=== PATIENT | male | born 1975 | race Caucasian/White ===

== ENCOUNTER 2017-08-22 12:40 | Inpatient (IN) | payer OTHER ==
[~2017-08-22] VITALS: Ht 180.3 cm; Wt 125.5 kg
[2017-08-22 13:26] LABS: BASOPHIL COUNT 0.1 K/uL (0-0.1); EOSINOPHIL (%) 0 % (0-5); HEMATOCRIT 50.4 % (38.0-50.0); IMMATURE GRANULOCYTE COUNT 0.2 K/uL; LYMPHOCYTE COUNT 1.2 K/uL (1.0-2.8); MCH 31.7 PG (29.0-34.0); MCHC 34.1 G/DL (30.0-36.0); MEAN PLAT.VOLUME 9.7 uM^3 (9.0-12.4); MONOCYTE COUNT 1.1 K/uL (0-0.8); NEUTROPHIL (%) 88.7 % (45-76); PLATELET COUNT 236 K/uL (156-360); RBC DIS.WIDTH-CV 13.9 % (11.8-14.6); RBC DIS.WIDTH-SD 47.4 % (39-53); RED BLOOD COUNT 5.42 M/uL (4.00-5.50); WHITE BLOOD COUNT 22.6 K/uL (4.1-10.2)
[2017-08-22 13:34] LABS: CHLORIDE 99 mEq/L (99-109); POTASSIUM 4.4 mEq/L (3.7-5.4); SODIUM 136 mEq/L (136-147)
[2017-08-22 13:36] LABS: GLUCOSE 118 mg/dL (70-99)
[2017-08-22 13:37] LABS: ANION GAP 12 MEQ/L (2-14)
[2017-08-22 13:38] LABS: TOTAL BILIRUBIN 0.9 mg/dL (0.0-1.0)
[2017-08-22 13:39] LABS: SERUM ETHYL ALCOHOL < 10 mg/dL
[2017-08-22 13:40] LABS: ALKALINE PHOSPHATASE 50 IU/L (3-129); GFR ESTIMATE (CALCULATED) > 59 mL/min/
[2017-08-22 13:41] LABS: UREA NITROGEN (BUN) 9 mg/dL (9-23)
[2017-08-22 16:09] LABS: ADD MIUA? NO; BILIRUBIN NEGATIVE; BLOOD NEGATIVE; COLOR STRAW ((YELLOW)); GLUCOSE (STRIP) NEGATIVE; KETONES NEGATIVE; LEUKOCYTES NEGATIVE; NITRITE NEGATIVE; PROTEIN (STRIP) NEGATIVE; SPECIFIC GRAVITY 1.008 (1.000-1.030); UCUL ADDED? NO; UROBILINOGEN 0.2 MG/DL (0.2-1.0)
[2017-08-22] MEDS ORDERED: LO-DOSE ASPIRIN81 M2 PO (19:27)
[2017-08-22 23:00] VITALS: BP 125/73
[2017-08-22 23:30] VITALS: BP 129/69
[2017-08-23] VITALS (7 sets, daily range): BP systolic 92–131; BP diastolic 54–88
[2017-08-23 08:41] LABS: MCH 32.7 PG (29.0-34.0); MCHC 34.4 G/DL (30.0-36.0); MCV 94.9 FL (86-99); MEAN PLAT.VOLUME 9.8 uM^3 (9.0-12.4); PLATELET COUNT 184 K/uL (156-360); RBC DIS.WIDTH-CV 14.6 % (11.8-14.6); RBC DIS.WIDTH-SD 50.5 % (39-53); RED BLOOD COUNT 4.53 M/uL (4.00-5.50); WHITE BLOOD COUNT 21.4 K/uL (4.1-10.2)
[2017-08-23 09:04] LABS: ALKALINE PHOSPHATASE 34 IU/L (3-129); ANION GAP 7 MEQ/L (2-14); CHLORIDE 104 MEQ/L (99-109); GFR ESTIMATE (CALCULATED) > 59 mL/min/; GLUCOSE 111 mg/dL (70-99); MAGNESIUM 1.1 mg/dl (1.3-2.7); POTASSIUM 3.7 MEQ/L (3.7-5.4); SAMPLE HEMOLYSIS CHECK 0; SAMPLE ICTERIC CHECK 0; SAMPLE LIPEMIA CHECK 0; SODIUM 139 MEQ/L (136-147); TOTAL BILIRUBIN 1.1 MG/DL (0.0-1.0); UREA NITROGEN (BUN) 7 mg/dL (9-23)
[2017-08-24 03:50] VITALS: BP 107/71
[2017-08-24 05:14] LABS: HEMATOCRIT 42.2 % (38.0-50.0); MCHC 33.2 G/DL (30.0-36.0); MCV 96.6 FL (86-99); MEAN PLAT.VOLUME 10.5 uM^3 (9.0-12.4); PLATELET COUNT 213 K/uL (156-360); RBC DIS.WIDTH-CV 14.2 % (11.8-14.6); RBC DIS.WIDTH-SD 51.3 % (39-53); RED BLOOD COUNT 4.37 M/uL (4.00-5.50); WHITE BLOOD COUNT 17.8 K/uL (4.1-10.2)
[2017-08-24 05:58] LABS: ANION GAP 8 MEQ/L (2-14); CHLORIDE 105 MEQ/L (99-109); GFR ESTIMATE (CALCULATED) > 59 mL/min/; POTASSIUM 3.7 MEQ/L (3.7-5.4); SAMPLE HEMOLYSIS CHECK 0; SAMPLE ICTERIC CHECK 0; SAMPLE LIPEMIA CHECK 0; SODIUM 140 MEQ/L (136-147); UREA NITROGEN (BUN) 6 mg/dL (9-23)
[2017-08-24 06:20] LABS: GLUCOSE 79 mg/dL (70-99); MAGNESIUM 1.9 mg/dl (1.3-2.7); VANCOMYCIN, TROUGH 8.7 MCG/ML (10-20)
[2017-08-24 07:32] VITALS: BP 102/61
[2017-08-24 11:28] VITALS: BP 115/75
[2017-08-24 14:39] VITALS: BP 120/82
[2017-08-24 17:23] VITALS: BP 134/93
[2017-08-24 19:25] VITALS: BP 130/89
[2017-08-25 00:10] VITALS: BP 120/73
[2017-08-25 04:23] VITALS: BP 129/93
[2017-08-25 05:46] LABS: HEMATOCRIT 40.3 % (38.0-50.0); MCH 31.4 PG (29.0-34.0); MEAN PLAT.VOLUME 9.7 uM^3 (9.0-12.4); PLATELET COUNT 211 K/uL (156-360); RBC DIS.WIDTH-CV 14.2 % (11.8-14.6); RBC DIS.WIDTH-SD 49.4 % (39-53); RED BLOOD COUNT 4.24 M/uL (4.00-5.50)
[2017-08-25 06:24] LABS: ANION GAP 8 MEQ/L (2-14); CHLORIDE 107 MEQ/L (99-109); GFR ESTIMATE (CALCULATED) > 59 mL/min/; GLUCOSE 88 mg/dL (70-99); SAMPLE HEMOLYSIS CHECK 0; SAMPLE ICTERIC CHECK 0; SAMPLE LIPEMIA CHECK 0; SODIUM 144 MEQ/L (136-147); UREA NITROGEN (BUN) 6 mg/dL (9-23)
[2017-08-25 07:24] VITALS: BP 115/78
[2017-08-25] MEDS ORDERED: FOLIC ACID1 MG PO (10:51)
[2017-08-25] MEDS ORDERED: THERAGRAN1 TABLET PO (10:51)
[2017-08-25] MEDS ORDERED: KEFLEX500 MG PO (10:55)
== END 2017-08-25 11:30 | disposition home or self-care (01) | DRG 872 ==
LOC: EME 12:40 → 4EAST 21:13 → EDOF 21:13 → ENRESERV 21:14 → 4EAST 22:46 → ENRESERV 08-24 09:18 → 5EAST 08-24 16:52 → ENPENDDIS 08-25 → 5EAST 08-25 11:30
PROVIDERS: Emergency Medicine; Hospitalist
DX: A41.9 Sepsis, unspecified organism (principal); L03.115 Cellulitis of right lower limb; E87.2 Acidosis; E83.42 Hypomagnesemia; E83.39 Other disorders of phosphorus metabolism; F17.200 Nicotine dependence, unspecified, uncomplicated; F10.239 Alcohol dependence with withdrawal, unspecified; R00.0 Tachycardia, unspecified; E66.9 Obesity, unspecified; I87.8 Other specified disorders of veins; R60.9 Edema, unspecified; Z68.37 Body mass index [BMI] 37.0-37.9, adult; Z82.5 Family history of asthma and other chronic lower respiratory diseases; Z79.82 Long term (current) use of aspirin; E86.0 Dehydration
CPT/HCPCS: 71010; 80048; 80053; 80069; 80202; 81003; 83605; 83735; 84100; 85025; 85027; 87040; 93005; 93971; 94799; 99281; 99285; C9113; G0480; J0690; J1650; J2060; J2270; J2405; J2543; J3370; J3475; J7030; J7050

== ENCOUNTER 2018-02-04 20:32 | Emergency (ER) | payer OTHER ==
[~2018-02-04] VITALS: Ht 180.3 cm; Wt 120.1 kg
[~2018-02-04 20:32] MED LIST: FOLIC ACID1 MG PO; KEFLEX500 MG PO; LO-DOSE ASPIRIN81 M2 PO; THERAGRAN1 TABLET PO
[2018-02-04 21:29] LABS: HEMATOCRIT 52.6 % (38.0-50.0); HEMOGLOBIN 18.2 G/DL (12.5-16.6); MCH 31.4 PG (29.0-34.0); MCHC 34.6 G/DL (30.0-36.0); MCV 90.7 FL (86-99); PLATELET COUNT 247 K/uL (156-360); RBC DIS.WIDTH-SD 46.7 % (39-53); WHITE BLOOD COUNT 13.1 K/uL (4.1-10.2)
[2018-02-04] MEDS ORDERED: CALAMINE LOTIO120 ML TP (21:53)
[2018-02-04 21:55] LABS: ALBUMIN 4.5 G/DL (3.2-4.8); ALKALINE PHOSPHATASE 39 IU/L (3-129); ALT (GPT) 23 IU/L (3-49); AST (GOT) 25 IU/L (2-34); CHLORIDE 102 MEQ/L (99-109); GFR ESTIMATE (CALCULATED) > 59 mL/min/ (58.99-99999); GLUCOSE 88 mg/dL (70-99); POTASSIUM 3.5 MEQ/L (3.7-5.4); SODIUM 138 MEQ/L (136-147); TOTAL BILIRUBIN 0.8 MG/DL (0.0-1.0); TOTAL PROTEIN 7.4 G/DL (6.4-8.3); UREA NITROGEN (BUN) 8 mg/dL (9-23)
[2018-02-04 22:18] VITALS: BP 158/101
== END 2018-02-04 22:18 | disposition home or self-care (01) ==
LOC: EME 20:32
DX: L23.9 Allergic contact dermatitis, unspecified cause (principal); K21.9 Gastro-esophageal reflux disease without esophagitis; F17.200 Nicotine dependence, unspecified, uncomplicated; Z79.82 Long term (current) use of aspirin; Z87.19 Personal history of other diseases of the digestive system
CPT/HCPCS: 80053; 85027; 99281; 99283

== ENCOUNTER → 2018-05-17 | Outpatient (CLI) | payer OTHER ==
[~2018-05-17] MED LIST changes: +CALAMINE LOTIO120 ML TP
== END | disposition home or self-care (01) ==
LOC: RES 12:47
DX: J98.4 Other disorders of lung (principal)
CPT/HCPCS: 94060; 94726; 94729